=== PATIENT | female | born 1985 | race Hispanic/Latino ===

== ENCOUNTER 2019-03-27 18:20 | Inpatient (IN) | payer BC ==
[~2019-03-27] VITALS: Ht 160 cm; Wt 66.2 kg
[~2019-03-27 18:20] MED LIST: PREN1TAB80 PO
[2019-03-27] MEDS ORDERED: LACTATED RINGERS 1000ML 1,000 ML IV ONE (18:28)
[2019-03-27] MEDS ORDERED: LACTATED RINGERS 1000ML 1,000 ML IV PRN (18:39)
[2019-03-27] MEDS ORDERED: LACTATED RINGERS 500 ML 500 ML IV PRN (18:45)
[2019-03-27] MEDS ORDERED: DINOPROSTONE 10 MG VAGINAL SUPP VG SCH (18:45)
[2019-03-27] MEDS ORDERED: EPHEDRINE SULFATE 50 MG/ML AMPULE IVP PRN (18:45)
[2019-03-27] MEDS ORDERED: NALOXONE HCL 0.4 MG/1 ML ML IV PRN (18:45)
[2019-03-27] MEDS ORDERED: PROMETHAZINE HCL 25 MG/ML 1ML AMPULE IM PRN (18:45)
[2019-03-27] MEDS ORDERED: MEPERIDINE-PF 50 MG/ML SYG IVP PRN (18:45)
[2019-03-27 19:06] LABS: MEAN CORPUSCULAR HEMOGLOBIN 27.9 pg (27.0-33.0); MEAN CORPUSCULAR HGB CONC 33.5 g/dL (32.0-36.0); MEAN CORPUSCULAR VOLUME 83.2 fL (79-99); PLATELET COUNT (AUTO) 251 K/uL (130-400); RED CELL DISTRIBUTION WIDTH 15.6 % (11.0-15.5)
[2019-03-27 19:12] LABS: APPEARANCE,URINE Clear (CLEAR); BILIRUBIN,URINE Negative (NEGATIVE); COLOR,URINE Yellow (YELLOW); GLUCOSE, URINE (UA) Negative (NEGATIVE); KETONES,URINE Negative (NEGATIVE); LEUKOCYTE ESTERASE ,URINE Negative (NEGATIVE); NITRATE,URINE Negative (NEGATIVE); OCCULT BLOOD,URINE Negative (NEGATIVE); PH,URINE 6.5 (5.0-8.0); PROTEIN,URINE Negative (NEGATIVE)
[2019-03-27 22:02] VITALS: BP 128/85
[2019-03-29] MEDS: OXYTOCIN-LR 20 UNITS/1000 ML 1,000 ML IV SCH ×2 (05:19→16:02)
[2019-03-29] MEDS ORDERED: FENTANYL CITRATE PF 50 MCG/1 ML 2ML VIAL ONE (06:32)
[2019-03-29] MEDS ORDERED: LIDOCAINE HCL 1% 20 ML VIAL ONE (07:05)
[2019-03-29 07:14] LABS: HEPATITIS Bs ANTIGEN SCREEN P Negative (Negative)
[2019-03-29] MEDS ORDERED: LIDOCAINE HCL 1% 20 ML VIAL INJ SCH (07:45)
[2019-03-29] MEDS ORDERED: ROPIVACAINE 0.2% 100ML VIAL 100 ML EP SCH (07:45)
[2019-03-29] MEDS ORDERED: CEFAZOLIN SODIUM 1 GM VIAL ONE (09:48)
[2019-03-29] MEDS ORDERED: MEASLES/MUMPS/RUBELLA VACCINE, LIVE 0.5 ML/VIAL SQ PRN (16:00)
[2019-03-29] MEDS ORDERED: DIPH,PERTUSS(ACELL),TET VAC/PF 0.5 ML VIAL IM PRN (16:00)
[2019-03-29] MEDS ORDERED: OXYTOCIN-LR 20 UNITS/1000 ML 1,000 ML IV SCH (16:00)
[2019-03-29] MEDS ORDERED: ACETAMINOPHEN 325 MG TAB PO PRN (16:00)
[2019-03-29] MEDS ORDERED: ACETAMINOPHEN-CODEINE 300/30MG TAB PO PRN (16:00)
[2019-03-29] MEDS ORDERED: BENZOCAINE/LANOLIN/ALOE VERA 60 ML AEROSOL TP PRN (16:00)
[2019-03-29] MEDS ORDERED: LANOLIN 30GM OINTMENT TP PRN (16:00)
[2019-03-29] MEDS ORDERED: WITCH HAZEL 1 PAD TP PRN (16:00)
[2019-03-29 16:30] VITALS: BP 127/82
[2019-03-29] MEDS: IBUPROFEN 600 MG TABLET PO PRN (19:04)
[2019-03-29 19:22] VITALS: BP 131/77
[2019-03-29] MEDS: DOCUSATE SODIUM 100 MG CAP PO SCH (21:20)
[2019-03-29 23:31] VITALS: BP 130/80
[2019-03-30] MEDS: IBUPROFEN 600 MG TABLET PO PRN ×2 (02:11→08:20)
[2019-03-30 03:33] VITALS: BP 119/69
[2019-03-30 07:40] VITALS: BP 119/77
[2019-03-30] MEDS: DOCUSATE SODIUM 100 MG CAP PO SCH (08:19)
--- NOTE | 2019-03-30 09:15 | NUR ---
DR. HEADLEY ROUNDED AND DISCHARGED PATIENT TO HOME. PATIENT STABLE AND DENIES ANY PROBLEMS.
[2019-03-30 11:40] VITALS: BP 134/84
--- NOTE | 2019-03-30 11:44 | NUR ---
PAIN ASSESSMENT DONE AND PATIENT DENIES PAIN. STATES WANTING TO TAKE SHOWER AND TOWELS GIVEN. UP AND WALKING IN ROOM.
--- NOTE | 2019-03-30 13:00 | NUR ---
DISCHARGE INSTRUCTIONS GIVEN AND SCRIPT FOR SURFAK GIVEN AND PATIENT INSTRUCTED TO TAKE MOTRIN OVER THE COUNTER 200MGS X 3 TABS EVERY 6 HOURS NEEDED FOR PAIN. Addendum: 03/30/19 at 1324 by BARR[place] MAR RN REINFORCED USE OF SITZ BATH AND REVIEWED SET UP WITH PATIENT.
--- NOTE | 2019-03-30 15:25 | NUR ---
PATIENT WAS TAKENL VIA W/C TO FAMILY VEHICLE AND WAS DISCHARGED TO HER SPOUSE IN STABLE CONDITION. PATIENT DENIES PAIN AND TOLERATING ACTIVITY WELL. BONDING WELL WITH BABY AND OTHER SIBLEINGS.
== END 2019-03-30 15:25 | disposition home or self-care (01) | DRG 768 ==
LOC: LDH 18:20 → WSH 03-29 16:32 → PREOBSVTOIN 04-03 18:18
PROVIDERS: ADMIT Obstetrics & Gynecology; ATTEND Obstetrics & Gynecology
PROC: 10E0XZZ Delivery of Products of Conception, External Approach (ICD-10-PCS; principal; 2019-03-29)
PROC: 0DQR0ZZ Repair Anal Sphincter, Open Approach (ICD-10-PCS; 2019-03-29)
PROC: 3E0234Z Introduction of Serum, Toxoid and Vaccine into Muscle, Percutaneous Approach (ICD-10-PCS; 2019-03-29)
PROC: 0W8NXZZ Division of Female Perineum, External Approach (ICD-10-PCS; 2019-03-29)
PROC: 3E0R3BZ Introduction of Anesthetic Agent into Spinal Canal, Percutaneous Approach (ICD-10-PCS; 2019-03-29)
PROC: 00HU33Z Insertion of Infusion Device into Spinal Canal, Percutaneous Approach (ICD-10-PCS; 2019-03-29)
PROC: 3E033VJ Introduction of Other Hormone into Peripheral Vein, Percutaneous Approach (ICD-10-PCS; 2019-03-29)
PROC: 10907ZC Drainage of Amniotic Fluid, Therapeutic from Products of Conception, Via Natural or Artificial Opening (ICD-10-PCS; 2019-03-29)
PROC: 3E0234Z Introduction of Serum, Toxoid and Vaccine into Muscle, Percutaneous Approach (ICD-10-PCS; 2019-03-29)
PROC: 3E0134Z Introduction of Serum, Toxoid and Vaccine into Subcutaneous Tissue, Percutaneous Approach (ICD-10-PCS; 2019-03-29)
DX: O69.2XX0 Labor and delivery complicated by other cord entanglement, with compression, not applicable or unspecified (principal); Z37.0 Single live birth; O70.20 Third degree perineal laceration during delivery, unspecified; O26.893 Other specified pregnancy related conditions, third trimester; Z67.41 Type O blood, Rh negative; Z3A.39 39 weeks gestation of pregnancy; Z23 Encounter for immunization
CPT/HCPCS: 36415; 81003; 83033; 85027; 86592; 86850; 86870; 86900; 86901; 87340; A4314; A4351; G0378; J0690; J2175; J2550; J2590; J2791; J3010; J7120